=== PATIENT | female | born 1945 | race Caucasian/White ===

== ENCOUNTER → 2017-03-03 | Outpatient (CLI) | payer MEDICARE ==
[~2017-03-03] MED LIST: ALLEGRA ALLERG180 MG PO; AMLODIPINE BESYL5 MG PO; BACLOFEN10 MG PO; CELEXA PO; DEXILANT60 MG PO; DICLOFENAC SOD100 MG PO; GABAPENTIN600 MG PO; HYDROCODON-ACE1 EAC5 PO; HYDROCODON-ACE1 EAC9 PO; LANSOPRAZOLE30 MG PO; LIPITOR20 MG PO; LIPITOR40 MG PO; METFORMIN HCL500 M1 PO; MYLANTA LIQ355 ML PO; NASONEX17 GM; NEURONTIN PO; PANTOPRAZOLE SO40 MG PO; PLAVIX PO; SINGULAIR PO; ZYRTEC PO; ZYRTEC10 M1 PO
--- NOTE | ~2017-03-03 | US5 ---
[facility] A Service of [facility] RADIOLOGY TEXT RESULTS PATIENT: CHAITANYA LEVINE LOCATION: [place] : 45 UNIT #: [id number] AGE: [address]: Andrew Vicente MD SEX: F ORDER DR: [id number] [place] [id number] O MR#: [id number] Acc #: [id number] NAME: CHAITANYA LEVINE : 1945 SEX: F STUDY DATE/TIME: 03/03/2017 10:45 UNIT: SGUS ROOM: STUDY DESCRIPTION: US Abdominal Complete Attending Physician: Andrew Vicente M.D. Referring Physician: Andrew Vicente M.D. Ordering Physician: Andrew Vicente M.D. Primary Care Physician: Andrew Vicente M.D. MEDICAL IMAGING REPORT This report is preliminary unless electronic signature is present. EXAM Abdominal ultrasound INDICATIONS Right upper quadrant abdominal pain for the past 5 years. PROCEDURE Reyes-scale and Doppler imaging of the abdomen COMPARISON CT from 03/25/2014 FINDINGS Visualized portions of pancreas are unremarkable. Liver is homogeneous. Liver measures 12.5 cm and no mass. Previous cholecystectomy. Common duct measures 1-2 mm. Right kidney measures 9.9 cm. Spleen measures 9.3 cm. Left kidney measures 10 cm. Submitted images abdominal aorta and inferior vena cava unremarkable. IMPRESSION Previous cholecystectomy. Negative abdominal ultrasound. Dictated by... Shreyas Pang M.D. THIS IS AN ELECTRONICALLY VERIFIED REPORT Shreyas Pang M.D. at 03/06/2017 7:43 AM EED/to TD: 03/03/2017 15:53 JOB #: [id number] [facility] A Service [facility][1] RADIOLOGY TEXT RESULTS PATIENT: CHAITANYA LEVINE LOCATION: [facility] : 45 UNIT #: [id number] AGE: [address]: Andrew Vicente MD SEX: F ORDER DR: MEDICAL IMAGING REPORT Page 1 of 1
== END | disposition home or self-care (01) ==
LOC: SGUS 10:27
DX: R10.11 Right upper quadrant pain (principal); Z90.49 Acquired absence of other specified parts of digestive tract
CPT/HCPCS: 76700

== ENCOUNTER → 2017-03-16 | Outpatient (CLI) | payer MEDICARE ==
--- NOTE | ~2017-03-16 | CT4 ---
[facility]. [facility] A Service of [facility] RADIOLOGY TEXT RESULTS PATIENT: CHAITANYA LEVINE LOCATION: [facility] : 45 UNIT #: [id number] AGE: [address]: Andrew Vicente MD SEX: F ORDER DR: [id number] [address] [address] [id number] O MR#: [id number] Acc #: [id number] NAME: CHAITANYA LEVINE : 1945 SEX: F STUDY DATE/TIME: 03/16/2017 12:26 UNIT: [facility] ROOM: STUDY DESCRIPTION: CT Abd and Pelv Wo Cont Attending Physician: Andrew Vicente M.D. Referring Physician: Andrew Vicente M.D. Ordering Physician: Andrew Vicente M.D. Primary Care Physician: Andrew Vicente M.D. MEDICAL IMAGING REPORT This report is preliminary unless electronic signature is present. EXAM Abdomen and pelvis CT no contrast 03/16/2017 INDICATIONS 71-year-old female with right upper quadrant pain nausea vomiting and weight loss. Symptoms for 6 months. History of cholecystectomy and hysterectomy. TECHNIQUE Noncontrast abdomen and pelvis CT was performed. This CT exam was performed with one or more of the following radiation dose reduction techniques: automatic control, adjustment of mA and/or kV according to patient size, and iterative reconstruction. COMPARISON 03/25/[address] ABDOMEN: Examination degraded by noncontrast technique. Included lung bases demonstrate emphysema. No effusion or pericardial effusion. There is circumferential wall thickening of the distal esophagus. This is similar to the prior study. No focal mass but the appearance is nonspecific on CT and could be inflammatory or infectious or neoplastic. Stability since 2013 argues against malignancy but should be correlated clinically. Aorta demonstrates atherosclerotic change. There is no distinct aneurysm. There are common iliac stents present bilaterally. Spleen adrenal glands and pancreas unremarkable. Duodenal diverticulum present. Gallbladder surgically absent. Liver unremarkable. Kidneys demonstrate no hydronephrosis or radiopaque stone. No adenopathy. CT PELVIS: Bladder unremarkable. Uterus surgically absent. There is [facility] A Service of [facility] RADIOLOGY TEXT RESULTS PATIENT: CHAITANYA LEVINE LOCATION: [facility] : 45 UNIT #: [id number] AGE: [address]: Andrew Vicente MD SEX: F ORDER DR: diverticulosis of the sigmoid colon. No CT evidence of acute diverticulitis. Appendix normal. Inguinal canals are unremarkable. Osseous structures demonstrate no suspicious bone lesion. IMPRESSION 1. No clearly acute process identified. No bowel obstruction drainable fluid collection or focal area of inflammatory change. The appendix is normal. 2. There is wall thickening of the esophagus within the field of view but this is chronic dating back to 2013 and therefore likely to be benign but should be correlated clinically. 3. Status post cholecystectomy, hysterectomy and iliac stent placement procedures. 4. Diverticulosis. Dictated by... Todd Desouza M.D. THIS IS AN ELECTRONICALLY VERIFIED REPORT Todd Desouza M.D. at 03/16/2017 5:03 PM NEDA/maday TD: 03/16/2017 14:35 JOB #: [id number] MEDICAL IMAGING REPORT Page 1 of 1
== END | disposition home or self-care (01) ==
LOC: SCT 12:14
DX: R10.11 Right upper quadrant pain (principal); R11.2 Nausea with vomiting, unspecified; R63.4 Abnormal weight loss; K22.8 Other specified diseases of esophagus; K57.30 Diverticulosis of large intestine without perforation or abscess without bleeding; Z90.49 Acquired absence of other specified parts of digestive tract; Z90.710 Acquired absence of both cervix and uterus
CPT/HCPCS: 74176

== ENCOUNTER → 2017-03-29 | Day surgery (SDC) | payer MEDICARE ==
--- NOTE | ~2017-03-29 | OR ---
Unit #: [id number] #: [id number] Patient: CHAITANYA LEVINE [id number] [address] [address] [id number] O MR#: [id number] NAME: CHAITANYA LEVINE ROOM: Date of Procedure: 03/29/2017 Admission Date: 03/29/2017 Surgeon: Marcello Bell M.D. : 1945 Attending Physician: Marcello Bell M.D. Primary Care Physician: Andrew Vicente M.D. OPERATIVE REPORT PRIMARY CARE PHYSICIAN Andrew Vicente M.D. PREOPERATIVE DIAGNOSES Severe epigastric pain, postprandial dyspepsia. PROCEDURES PERFORMED Upper gastrointestinal endoscopy and biopsy. POSTOPERATIVE DIAGNOSES 1. The patient had large gastric ulcer in the prepyloric antral area. This was 1.8 to 2 cm in size with grayish-white ulcer base and deep crater. 2. Diffuse prepyloric antral gastritis. 3. Rest of the examination up to third part of duodenum was normal. A biopsy was obtained from the antrum for CLOtest. RECOMMENDATIONS The patient will be started on lansoprazole 30 mg p.o. b.i.d. She will be followed up in the office in 3 months' time. In addition, she will have a repeat upper endoscopy in 8 to 10 weeks' time to document healing of the ulcer. SEDATION USED MAC. DESCRIPTION OF PROCEDURE Following detailed explanation of potential risks and complications of an upper endoscopy, namely perforation, bleeding, and complication related to sedation, the patient was brought to GI lab and laid in the left lateral decubitus position. Lubricated tip of the Olympus video upper endoscope was passed through the bite block into the proximal esophagus under direct vision. The entire esophageal mucosa was examined and appeared normal. Z-line was nicely demarcated, there being no esophagitis or hiatus hernia. The scope was then advanced into the gastric cavity and the latter was insufflated. Mucosa of the fundus, body, and antrum was examined. The patient was noted to have a deep ulcer in the prepyloric antral area, which was about 1.8 cm in size with grayish-white crater. In addition, there was evidence of diffuse antral gastritis. Pylorus was intubated with visualization of normal duodenal bulb and second and third part of the duodenum. Upon withdrawal and retroflexion, incisura, cardia, and greater curve was examined and no additional findings were noted. The scope was then withdrawn in the distal esophagus. The entire esophageal Unit #: [id number] #: [id number] Patient: CHAITANYA LEVINE mucosa was examined all the way up to pharynx. No additional findings were noted. The patient tolerated the procedure without any postprocedure complications. Dictated by... Zelda Saab/analia TD: 03/29/2017 15:29 JOB #: [id number] OPERATIVE REPORT Page 1 of 1 X Marcello Bell MD X PROCEDURE OPERATIVE NOTE
== END | disposition home or self-care (01) ==
LOC: COPS 09:35
DX: K25.9 Gastric ulcer, unspecified as acute or chronic, without hemorrhage or perforation (principal); K29.70 Gastritis, unspecified, without bleeding; I25.2 Old myocardial infarction; E11.9 Type 2 diabetes mellitus without complications; F17.210 Nicotine dependence, cigarettes, uncomplicated; Z87.01 Personal history of pneumonia (recurrent); Z98.51 Tubal ligation status; Z90.710 Acquired absence of both cervix and uterus; Z98.41 Cataract extraction status, right eye; Z98.42 Cataract extraction status, left eye; Z90.49 Acquired absence of other specified parts of digestive tract; Z79.899 Other long term (current) drug therapy
CPT/HCPCS: 82947; 87077; J2250

== ENCOUNTER → 2017-06-12 | Day surgery (SDC) | payer MEDICARE ==
--- NOTE | ~2017-06-12 | OR ---
Unit #: [id number] #: [id number] Patient: CHAITANYA LEVINE [id number] [address] [address] [id number] O MR#: [id number] NAME: CHAITANYA LEVINE ROOM: Date of Procedure: 06/12/2017 Admission Date: 06/12/2017 Surgeon: Marcello Bell M.D. : 1945 Attending Physician: Marcello Bell M.D. Primary Care Physician: Andrew Vicente M.D. OPERATIVE REPORT PRIMARY CARE PHYSICIAN Andrew Vicente M.D. PREOPERATIVE DIAGNOSES The patient has come for elective upper endoscopy, having had personal history of large gastric ulcer, which has been treated. She was also positive for Helicobacter pylori. PROCEDURES PERFORMED Upper gastrointestinal endoscopy and biopsy. POSTOPERATIVE DIAGNOSES Previously seen gastric ulcer is healed. The patient did have some food residue and diffuse mild antral gastritis. Biopsies were obtained for CLOtest again. Rest of the examination up to third part of duodenum was normal. RECOMMENDATIONS The patient will be followed up in the office in 3 months' time. In the meantime, she will continue on PPI therapy. She can also resume her Plavix. SEDATION USED MAC. DESCRIPTION OF PROCEDURE Following detailed explanation of potential risks and complications of an upper endoscopy, namely perforation, bleeding, and complications related to sedation, the patient was brought to GI lab and laid in the left lateral decubitus position. Lubricated tip of the Olympus video upper endoscope was passed through bite block into the proximal esophagus under direct vision. The entire esophageal mucosa was examined and appeared normal. Z-line was nicely demarcated, there being no esophagitis or hiatus hernia. The scope was then advanced into the gastric cavity and the latter was insufflated. Mucosa of the fundus, body, and antrum was examined. The patient was noted to have mild to moderate amount of food residue in the stomach. The prepyloric antral area showed antral gastritis; however, previously seen gastric ulcer was totally healed in the antrum. Pylorus was intubated with visualization of the normal duodenal bulb and second and third part of the duodenum. Upon withdrawal and retroflexion, incisura, cardia, and greater curve examined and biopsy obtained from the antrum for CLOtest. The scope was then withdrawn in the Unit #: [id number] #: [id number] Patient: CHAITANYA LEVINE distal esophagus. The entire esophageal mucosa was examined all the way up to pharynx. No additional findings noted. The patient tolerated the procedure without any postprocedure complications. Dictated by... Zelda Saab TD: 06/12/2017 11:44 JOB #: [id number] OPERATIVE REPORT Page 1 of 1 X Marcello Bell MD X PROCEDURE OPERATIVE NOTE
== END | disposition home or self-care (01) ==
LOC: COPS 07:36
DX: T18.2XXA Foreign body in stomach, initial encounter (principal); K29.70 Gastritis, unspecified, without bleeding; F17.210 Nicotine dependence, cigarettes, uncomplicated; Z98.51 Tubal ligation status; Z87.01 Personal history of pneumonia (recurrent); Z90.710 Acquired absence of both cervix and uterus; X58.XXXA Exposure to other specified factors, initial encounter
CPT/HCPCS: 82947; 87077